=== PATIENT | male | born 1960 | race Caucasian/White ===

== ENCOUNTER 2019-08-24 12:01 | Outpatient (CLI) | payer OTHER ==
--- NOTE | 2019-08-24 13:38 | RAD ---
3 VIEWS RIGHT HAND: Date: 08/24/2019 COMPARISON: None. HISTORY: Inflammatory polyarthropathy. FINDINGS: Three views of the right hand show no evidence of acute fracture or dislocation. Small erosions are s een in the distal aspect of the third metacarpal. There is joint space narrowing in the thumb metacar pophalangeal joint. IMPRESSION: Small erosions in the middle finger metacarpal could be secondary to an inflammatory arthropathy. No other signs of erosive changes are seen. POS: [facility]
--- NOTE | 2019-08-24 13:39 | RAD ---
3 VIEWS LEFT HAND: Date: 08/24/2019 COMPARISON: None. HISTORY: Inflammatory polyarthropathy. FINDINGS: Three views of the left hand show no evidence of acute fracture or dislocation. No osseous erosions a re seen. No soft tissue swelling is seen. IMPRESSION: Unremarkable exam. POS: [facility]
--- NOTE | 2019-08-24 13:40 | RAD ---
RIGHT WRIST 3 VIEWS: Date: 08/24/2019 HISTORY: Inflammatory polyarthropathy. FINDINGS: The radiocarpal joint is unremarkable. Carpals are normally aligned. Degenerative changes are noted a t the first carpometacarpal with joint narrowing, articular sclerosis, and hypertrophic spurring. No other evidence of arthropathy. IMPRESSION: Degenerative-type changes at the first carpometacarpal joint. POS: [facility]
--- NOTE | 2019-08-24 13:41 | RAD ---
LEFT WRIST 3 VIEWS: Date: 08/24/2019 HISTORY: Inflammatory polyarthropathy. FINDINGS: Mild osteoarthrosis change of the wrist. Minimal chondrocalcinosis. No bony erosive or periarticular disruptive changes to suggest plain x-ray evidence for acute inflammatory arthritis. IMPRESSION: Evidence for osteoarthritis. POS: [facility]
== END 2019-08-24 12:02 | disposition home or self-care (01) ==
LOC: BICRAD 12:01
PROVIDERS: ATTEND Internal Medicine
DX: M06.4 Inflammatory polyarthropathy (principal); M18.11 Unilateral primary osteoarthritis of first carpometacarpal joint, right hand; M19.032 Primary osteoarthritis, left wrist